=== PATIENT | female | born 1975 | race Hispanic/Latino ===

== ENCOUNTER 2022-08-17 22:29 | Emergency (ER) | payer BC ==
[~2022-08-17] VITALS: Ht 162.6 cm; Wt 72.6 kg
[2022-08-17 23:59] VITALS: O2SAT 100
[2022-08-18] MEDS ORDERED: KETOROLAC TROMETHAMINE 60 MG/2 ML VIAL ONE (00:05)
[2022-08-18] MEDS ORDERED: KETOROLAC TROMETHAMINE 60 MG/2 ML VIAL IM ONE (00:15)
== END 2022-08-18 00:45 | disposition home or self-care (01) ==
LOC: ER 22:35
DX: R51.9 Headache, unspecified (principal); J32.9 Chronic sinusitis, unspecified
CPT/HCPCS: 99282; J1885